=== PATIENT | female | born 1985 | race American Indian/Alaskan Native ===

== ENCOUNTER 2018-11-30 02:16 | Inpatient (IN) | payer MEDICAID ==
[2018-11-30] MEDS ORDERED: STADOL IV PRN (03:01)
[2018-11-30] MEDS ORDERED: BRETHINE SUB-Q PRN (03:02)
[2018-11-30] MEDS ORDERED: MINERAL OIL PO PRN (03:02)
[2018-11-30] MEDS ORDERED: BRETHINE IVP PRN (03:02)
[2018-11-30] MEDS ORDERED: XYLOCAINE 2% INFILTRATI ONE (03:02)
[2018-11-30] MEDS ORDERED: AMPICILLIN/NS 2 GM/100 ML 2 GM/100 ML BAG IV ONE (03:04)
[2018-11-30 03:34] LABS: Hematocrit 34.8 % (30.3-42.9); Hemoglobin 11.8 gm/dl (10.1-14.3); Mean Corpuscular HGB Conc 34 % (30-34); Mean Corpuscular Volume 83 fl (79-97); Platelet Count 320 K/mm3 (140-440); Red Cell Distribution Width 16.9 % (13.2-15.2)
[2018-11-30] MEDS ORDERED: LACTATED RINGERS 1,000 ML IV SCH ×2 (04:00→16:00)
[2018-11-30] MEDS ORDERED: PITOCin/NS 30 UNIT/500ML 30 UNITS/500 ML BAG IV SCH ×2 (04:00)
[2018-11-30] MEDS ORDERED: PITOCin/NS 20 UNIT/1000ML DRIP 20 UNITS/1,000 ML BAG IV SCH ×3 (04:00→19:00)
[2018-11-30] MEDS ORDERED: NARCAN 2 MG/2 ML IV PRN (05:28)
--- NOTE | 2018-11-30 05:29 | Anesthesia Consultation ---
Anesthesia Consult and Med Hx Date of service: 11/30/18 - Airway Anesthetic Teeth Evaluation: Good ROM Head & Neck: Adequate Mental/Hyoid Distance: Adequate Mallampati Class: Class III Intubation Access Assessment: Probably Good - Pulmonary Exam CTA: Yes - Cardiac Exam Cardiac Exam: RRR - Pre-Operative Health Status ASA Pre-Surgery Classification: ASA3 Proposed Anesthetic Plan: Epidural - Pulmonary Hx Smoking: No Hx Asthma: Yes (as a child) Hx Respiratory Symptoms: No SOB: No COPD: No Home Oxygen Therapy: No Hx Pneumonia: No Hx Sleep Apnea: No - Cardiovascular System Hx Hypertension: No Hx Coronary Artery Disease: No Hx Heart Attack/AMI: No Hx Angina: No Hx Percutaneous Transluminal Coronary Angioplasty (PTCA): No Hx Cardia Arrhythmia: No Hx Pacemaker: No Hx Internal Defibrillator: No Hx Valvular Heart Disease: No Hx Heart Murmur: No Hx Peripheral Vascular Disease: No - Central Nervous System Hx Neuromuscular Disorder: No Hx Seizures: No CVA: No Hx Back Pain: Yes Hx Psychiatric Problems: No - Gastrointestinal Hx Ulcer: No Hx Gastroesophageal Reflux Disease: Yes - Endocrine Hx Renal Disease: No Hx End Stage Renal Disease: No Hx Cirrhosis: No Hx Liver Disease: No Hx Insulin Dependent Diabetes: No Hx Non-Insulin Dependent Diabetes: No Hx Thyroid Disease: No Hx Hypothyroidism: No Hx Hyperthyroidism: No - Hematic Hx Anemia: Yes Hx Sickle Cell Disease: No - Other Systems Hx Alcohol Use: No Hx Substance Use: No Hx Cancer: No Hx Obesity: Yes
[2018-11-30] MEDS ORDERED: fentaNYL-BUPIV 2 MCG/ML-0.125% 200 MCG/100 ML BAG EPIDURAL SCH (06:00)
[2018-11-30] MEDS ORDERED: AMPICILLIN/NS 1 GM/50 ML 1 GM/50 ML BAG IV SCH (07:03)
--- NOTE | 2018-11-30 09:28 | History and Physical Report ---
History of Present Illness Date of examination: 11/30/18 Date of admission: 11/30/2018 Chief complaint: Intense labor pains History of present illness: 33yo AA Fe MACK 12/04/18 39 weeks 3 days presents in spontaneous labor. Pt received care with [facility]. Records not available on admission but requested this am. Pt co-managed with [facility] for Morbid obesity. Last visit with them 11/29/18. Reports positive GBS status. 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 denies: smoking, alcohol abuse, prescription drug abuse, IV drug use - Obstetrical History Expected Date of Delivery: 12/04/18 Actual Gestation: 39 Week(s) 3 Day(s) : 5 Para: 1 Hx # Term Pregnancies: 1 Number of Pregnancies: 0 Spontaneous Abortions: 3 Number of Living Children: 1 Medications and Allergies Allergies Allergy/AdvReac Type Severity Reaction Status Date / Time No Known Allergies Allergy Verified 11/27/18 13:17 Active Meds: Active Medications Butorphanol Tartrate (Stadol) 2 mg IV Q2H PRN PRN Reason: Labor Pain Last Admin: 11/30/18 03:30 Dose: 2 mg Documented by: Ephedrine Sulfate (Ephedrine Sulfate) 10 mg IV Q2M PRN PRN Reason: Hypotension Oxytocin/Sodium Chloride (Pitocin/Ns 20 Unit/1000ml Drip) 20 units in 1,000 mls @ 125 mls/hr IV DIRECT RABIA Oxytocin/Sodium Chloride (Pitocin/Ns 30 Unit/500ml) 30 units in 500 mls @ 1 mls/hr IV TITR RABIA; Protocol Oxytocin/Sodium Chloride (Pitocin/Ns 30 Unit/500ml) 30 units in 500 mls @ 2 mls/hr IV TITR RABIA; Protocol Last Titration: 11/30/18 05:45 Dose: 8 ml/hr, 8 mls/hr Documented by: Lactated Ringer's (Lactated Ringers) 1,000 mls @ 125 mls/hr IV DIRECT RABIA Last Admin: 11/30/18 03:30 Dose: 125 mls/hr Documented by: Ampicillin Sodium (Ampicillin/Ns 1 Gm/50 Ml) 1 gm in 50 mls @ 100 mls/hr IV Q4HR RABIA; Protocol Fentanyl/Bupivacaine/Sodium Chlor (Fentanyl-Bupiv 2 Mcg/Ml-0.125%) 200 mcg in 100 mls @ 12 mls/hr EPIDURAL TITR RABIA; Protocol Mineral Oil (Mineral Oil) 30 ml PO QHS PRN PRN Reason: Constipation Naloxone HCl (Narcan 2 Mg/2 Ml) 0.2 mg IV Q5M PRN PRN Reason: Respiratory sedation Terbutaline Sulfate (Brethine) 0.25 mg SUB-Q ONCE PRN PRN Reason: Hyperstimulation/Hypertonicity Terbutaline Sulfate (Brethine) 0.25 mg IVP ONCE PRN PRN Reason: Hyperstimulation/Hypertonicity Review of Systems Eyes: normal appearance Cardiovascular: no chest pain, no shortness of breath Respiratory: no shortness of breath Breasts: normal Gastrointestinal: no nausea, no vomiting, no diarrhea, no constipation Genitourinary: normal appearance, contractions, no vaginal bleeding, no leakage of fluid, no genital sores Integumentary: no rash, no sores, no lesions - Vital Signs Vital signs: Vital Signs Pulse BP 100 H 133/79 11/30/18 03:04 11/30/18 03:04 Temp Pulse Resp BP Pulse Ox 98.0 F 133 H 20 163/98 11/30/18 08:09 11/30/18 09:08 11/30/18 06:18 11/30/18 09:08 - Physical Exam Breasts: Positive: normal Cardiovascular: Regular rate, Normal S1, Normal S2, No murmurs Lungs: Positive: Clear to auscultation, Normal air movement Abdomen: Positive: normal appearance, soft, normal bowel sounds. Negative: distention Genitourinary (Female): Positive: normal external genitalia, normal perenium Vulva: both: normal Vagina: Positive: other (bloody show) Uterus: Positive: enlarged (Gravid. EFW with [facility] per pt [id number] on 11/28/18) Anus/Rectum: Positive: normal perianal skin Extremities: Positive: normal Deep Tendon Reflex Grade: Normal +2 - Obstetrical FHR: category 1 Uterine Contraction Monitor Mode: External Cervical Dilatation: 7 (AROM with exam. Lg amt clear fluid) Cervical Effacement Percentage: 70 station: -2 Uterine Contraction Frequency (min): 2-5 Uterine Contraction Pattern: Regular Uterine Tone Measurement Phase: Resting Uterine Contraction Intensity: Moderate Results Result Diagrams: 11/30/18 03:08 Abnormal lab results 11/30/18 Range/Units 03:08 WBC 12.1 H (4.5-11.0) K/mm3 RDW 16.9 H (13.2-15.2) % All other labs normal. Assessment and Plan A: Term IUP Active labor Morbid Obesity GBS Positive Category 1 tracing Comfortable with epidural P: Admit/Continue routine labor orders Pitocin Augmentation GBS prophylaxis Anticiapte
[2018-11-30] MEDS ORDERED: MARCAINE 0.25% INFILTRATI ONE (12:18)
--- NOTE | 2018-11-30 14:43 | Progress Note ---
Assessment and Plan A: Term IUP Active labor Morbid Obesity GBS Positive tx'd x3 Category 1 tracing Comfortable with epidural OP presentation with minimal change since this am [facility] EFW 9+lbs P: Continue routine labor orders Continue Pitocin Augmentation; MVU goal 275-[address] Bhumi VERGARA notified of slow progression with OP presentation and [place] expected 9+ lbs. Will come evaluate. Subjective - Subjective Date of service: 11/30/18 Principal diagnosis: Term IUP; Active labor Interval history: 33yo AA Fe MACK 12/04/18 39 weeks 3 days presents in spontaneous labor. Pt received care with [facility]. Records not available on admission but requested this am. Pt co-managed with [facility] for Morbid obesity. Last visit with them 11/29/18. Reports positive GBS status. Patient reports: movement normal, contractions Objective - Vital Signs Vital Signs: Vital Signs - 12hr 11/30/18 11/30/18 11/30/18 03:04 03:06 03:30 Temperature 97.6 F Pulse Rate 100 H 100 H Respiratory 18 18 Rate Blood Pressure 133/79 Blood Pressure 113/79 [Right] 11/30/18 11/30/18 11/30/18 04:06 04:36 05:07 Temperature Pulse Rate 91 H 90 94 H Respiratory Rate Blood Pressure 120/72 125/80 134/77 Blood Pressure [Right] 11/30/18 11/30/18 11/30/18 05:37 06:07 06:18 Temperature Pulse Rate 86 92 H Respiratory 20 Rate Blood Pressure 118/65 99/55 Blood Pressure [Right] 11/30/18 11/30/18 11/30/18 06:37 07:06 07:39 Temperature Pulse Rate 88 85 86 Respiratory Rate Blood Pressure 103/54 102/59 154/113 Blood Pressure [Right] 11/30/18 11/30/18 11/30/18 07:45 08:06 08:09 Temperature 98.0 F Pulse Rate 84 78 Respiratory Rate Blood Pressure 107/57 112/57 Blood Pressure [Right] 11/30/18 11/30/18 11/30/18 08:36 09:08 09:37 Temperature Pulse Rate 83 133 H 88 Respiratory Rate Blood Pressure 107/56 163/98 113/70 Blood Pressure [Right] 11/30/18 11/30/18 11/30/18 10:07 10:36 11:06 Temperature Pulse Rate 101 H 97 H 103 H Respiratory Rate Blood Pressure 118/57 124/58 120/71 Blood Pressure [Right] 11/30/18 11/30/18 11/30/18 11:37 12:06 12:36 Temperature Pulse Rate 113 H 113 H 109 H Respiratory Rate Blood Pressure 116/68 119/70 109/58 Blood Pressure [Right] 11/30/18 11/30/18 11/30/18 13:07 13:36 14:06 Temperature Pulse Rate 96 H 100 H 104 H Respiratory Rate Blood Pressure 170/58 115/61 129/73 Blood Pressure [Right] - Exam Breasts: normal Cardiovascular: Regular rate, Normal S1, Normal S2, No murmurs Lungs: Clear to auscultation, Normal air movement Abdomen: Present: normal appearance, soft, normal bowel sounds. Absent: distention Vulva: both: normal Uterus: Present: other (Gravid) FHR: category 1 Uterine Contraction Monitor Mode: External Cervical Dilatation: 8 (OP presentation) Cervical Effacement Percentage: 70 station: -1 Uterine Contraction Frequency (min): 3-4 Uterine Contraction Duration: 60-90 Uterine Contraction Pattern: Regular Uterine Tone Measurement Phase: Resting Extremities: normal Deep Tendon Reflex Grade: Normal +2 - Labs Labs: Abnormal Labs 11/30/18 03:08 WBC 12.1 H RDW 16.9 H Laboratory Results - last 24 hr 11/30/18 11/30/18 03:08 03:08 WBC 12.1 H RBC 4.20 Hgb 11.8 Hct 34.8 MCV 83 MCH 28 MCHC 34 RDW 16.9 H Plt Count 320 Blood Type A POSITIVE Antibody Screen Negative
[2018-11-30] MEDS ORDERED: PEPCID IV ONE ×2 (15:52→15:53)
[2018-11-30] MEDS ORDERED: BICITRA PO ONE (15:52)
[2018-11-30] MEDS ORDERED: REGLAN IV ONE (15:52)
[2018-11-30] MEDS ORDERED: BICITRA ONE (15:54)
[2018-11-30] MEDS ORDERED: REGLAN ONE (15:54)
[2018-11-30] MEDS ORDERED: ceFAZolin 3 GM in NACL 0.9% 100 ML IV NR (16:00)
--- NOTE | 2018-11-30 16:04 | Progress Note ---
Assessment and Plan - Patient Problems (1) 39 weeks gestation of Current Visit: Yes Status: Acute (2) Active labor Current Visit: Yes Status: Acute (3) Failure of cervical dilation Current Visit: Yes Status: Acute Plan to address problem: Pitocin discontinued. I counselled the patient for delivery C/section. Risks and benefits of the procedure were discussed with her such as infection, hemorrhage requiring blood transfusion, injury to the bowel, bladder and blood vessels. She expressed understanding, her questions were answered, she gave her informed consent. Keep NPO. Anesthesia has been notified. Epidural in place. (4) Morbid obesity Current Visit: Yes Status: Acute Subjective - Subjective Date of service: 11/30/18 Principal diagnosis: Term IUP; Active labor Interval history: Patient is a 33 year old, , EDC 12/04/18 at 39 weeks 3 days who was admitted last night for early labor. She was augmented with pitocin this AM. She had AROM this AM with clear fluid. She has been shreyas every 2-3 minutes. tracing is CAT1. As per the political theory professor, she progressed to 7 cm at 9 AM and has not made any further changes since then. I was called to evaluate the patient by political theory professor July for failure to dilate. I found the patient lying in bed comfortably, she had an epidural for pain control. Cervix: 7 cm/90%/-2 to -1 with caput. Patient reports: movement normal, contractions Objective - Vital Signs Vital Signs: Vital Signs - 12hr 11/30/18 11/30/18 11/30/18 04:06 04:36 05:07 Temperature Pulse Rate 91 H 90 94 H Respiratory Rate Blood Pressure 120/72 125/80 134/77 11/30/18 11/30/18 11/30/18 05:37 06:07 06:18 Temperature Pulse Rate 86 92 H Respiratory 20 Rate Blood Pressure 118/65 99/55 11/30/18 11/30/18 11/30/18 06:37 07:06 07:39 Temperature Pulse Rate 88 85 86 Respiratory Rate Blood Pressure 103/54 102/59 154/113 11/30/18 11/30/18 11/30/18 07:45 08:06 08:09 Temperature 98.0 F Pulse Rate 84 78 Respiratory Rate Blood Pressure 107/57 112/57 11/30/18 11/30/18 11/30/18 08:36 09:08 09:37 Temperature Pulse Rate 83 133 H 88 Respiratory Rate Blood Pressure 107/56 163/98 113/70 11/30/18 11/30/18 11/30/18 10:07 10:36 11:06 Temperature Pulse Rate 101 H 97 H 103 H Respiratory Rate Blood Pressure 118/57 124/58 120/71 11/30/18 11/30/18 11/30/18 11:37 12:00 12:06 Temperature 98.0 F Pulse Rate 113 H 113 H Respiratory Rate Blood Pressure 116/68 119/70 11/30/18 11/30/18 11/30/18 12:36 13:07 13:36 Temperature Pulse Rate 109 H 96 H 100 H Respiratory Rate Blood Pressure 109/58 170/58 115/61 11/30/18 11/30/18 11/30/18 14:06 14:36 15:07 Temperature Pulse Rate 104 H 96 H 97 H Respiratory Rate Blood Pressure 129/73 130/65 129/60 11/30/18 15:36 Temperature Pulse Rate 106 H Respiratory Rate Blood Pressure 133/70 - Exam Cardiovascular: Normal S1, Normal S2 Lungs: Clear to auscultation Vulva: both: normal FHR: category 1 Uterine Contraction Monitor Mode: External Cervical Dilatation: 7 Cervical Effacement Percentage: 90 station: -2 Uterine Contraction Pattern: Regular Uterine Contraction Intensity: Strong/Firm Deep Tendon Reflex Grade: Normal +2 - Labs Labs: Abnormal Labs 11/30/18 03:08 WBC 12.1 H RDW 16.9 H Laboratory Results - last 24 hr 11/30/18 11/30/18 11/30/18 03:08 03:08 03:08 WBC 12.1 H RBC 4.20 Hgb 11.8 Hct 34.8 MCV 83 MCH 28 MCHC 34 RDW 16.9 H Plt Count 320 RPR Nonreactive Blood Type A POSITIVE Antibody Screen Negative - Results US- obstetric: report reviewed
[2018-11-30] MEDS ORDERED: XYLOCAINE MPF 2% ONE ×5 (16:11→17:58)
[2018-11-30] MEDS ORDERED: METHERGINE IM ONE ×3 (16:21→17:59)
--- NOTE | 2018-11-30 16:26 | Event Note ---
Date: 11/30/18 Patient was ready to be taken to the OR for her C/section. Dr. Villafana had a C/section to do at 5 PM. I called his office several times to let him know that I will section Ms. Sharma before his case but I was not able to find him as nobody picked up the phone. Now, his chief investment officer was given the message and he said that he just found found out. he wants to come now to do his case. I told the staff that his case is going first. I will sign Mrs. Sharma to Dr. Iglesia Harley at 5 pm since the OR will not ready until after Dr. Villafana's case.
[2018-11-30] MEDS ORDERED: NACL 0.9% IR ONE (17:00)
[2018-11-30] MEDS ORDERED: WATER FOR IRRIG STERILE IR ONE (17:00)
[2018-11-30] MEDS ORDERED: ZOFRAN ONE (17:11)
--- NOTE | 2018-11-30 18:25 | Operative Report ---
Operative Report Operative Report: Preoperative diagnosis 1. SIUP at 39 weeks and 3 days gestation in active labor. 2. Failure to dilate and descend. 3. Nonreassuring tracing. 4. Morbid obesity. Postoperative diagnosis: Same. Procedure: Primary low-transverse section. Surgeon: Dr. Nino Escape Wheel Tooth Cutter: none Anesthesia: epidural. IVF: RL 1700 cc EBL: 800 cc Urine: 300 cc clear Complications: Intraoperative uterine atony responsive to IV Pitocin and IM methergine. Intraoperative findings: 1. A male found in an VICKI position, tight nuchal cord 1, delivered at 5:11 PM, Apgars 8 at 1 minute and 9 at 5 minutes, weight 8 lbs. 4 oz. 2. Normal fallopian tubes and ovaries bilaterally. Procedure details: Risks, benefits, and alternatives of the procedure were discussed in detail with the patient which included but not limited to the risk of infection, hemorrhage requiring blood transfusion, injury to the bowel or bladder and blood vessels. The patient expressed understanding, her questions were answered, and she gave informed consent. The patient was taken to the operating room with an IV fluid infusing Ringers lactate. In the operating room, she was placed in a dorsal supine position with a leftward tilt. She was loaded with epidural anesthesia. Arzate catheter in Venodyne boots were placed. The abdomen was washed and she was prepared and draped in usual sterile fashion. After confirming adequate epidural anesthesia, the Pfannenstiel skin incision was made in the lower abdomen about 2 cm above the pubic symphysis using the scalpel. This incision was carried down to the underlying fascia using the Bovie. The fascia was opened bilaterally in a curvilinear fashion using the Bovie. 2 straight Kocker clamps were used to grasp the upper edge of the fascia from which the underlying rectus abdominis muscles was dissected off using the Bovie. A similar procedure was done with the lower edge of the fascia to dissect the underlying rectus abdominis muscle. The muscle was bluntly from the midline by pulling. The parietal peritoneum was grasped with 2 hemostat clamps and entered sharply using Metzenbaum scissors. A quick survey of the anatomy revealed a gravid uterus, normal fallopian tubes and ovaries bilaterally. A bladder flap was created. Reza'O retractor was placed in the incision for proper visualization. A low transverse incision was made in the lower uterine segment using the scalpel and extended bilaterally in a curvilinear fashion using bandage scissors. There was scant amount of clear amniotic fluid as the membranes have been ruptured during the labor. The infant was found in an VICKI position, the head was delivered atraumatically followed by the delivery of the shoulders and the rest of the body at 5:11 PM. There was tight nuchal cord 1. The cord was clamped 2 and cut and the infant was handed off to the waiting cabinetmaker helper. The infant was a male, Apgars were 8 at 1 minute and 9 at 5 minutes, weight was 8 pounds and 4 ounces. Cord blood was collected. The placenta was delivered manually and it was complete with a three-vessel cord. The uterine cavity was cleaned of clots and debris using dry lap sponges. The uterine incision was repaired in a running locked fashion using 0 Vicryl sutures. A second layer of imbrication was placed. The gutters were cleaned of clots and debris using dry lap sponges. After confirming adequate hemostasis, the instruments were removed from the abdominal cavity. The rectus muscle was reapproximated in an interrupted fashion using 0 Vicryl sutures. The fascia was closed in a running fashion using 0 Vicryl sutures. The subcutaneous adipose layer was closed with 2.0 chromic sutures. skin was closed with ruth. Sterile dressing was placed. The counts of laps, needles, sponges, and instruments were correct 2. The patient tolerated the procedure well, she was taken to the recovery room in a stable condition.
[2018-11-30] MEDS ORDERED: ZOFRAN IV PRN (18:26)
[2018-11-30] MEDS ORDERED: TUCKS PAD TP PRN (18:26)
[2018-11-30] MEDS ORDERED: ANUCORT-HC PR PRN (18:26)
[2018-11-30] MEDS ORDERED: IBUPROFEN PO PRN (18:26)
[2018-11-30] MEDS ORDERED: TORADOL IV PRN ×2 (18:26)
[2018-11-30] MEDS ORDERED: MILK OF MAGNESIA PO PRN (18:26)
[2018-11-30] MEDS ORDERED: PHENERGAN PR PRN (18:26)
[2018-11-30] MEDS ORDERED: NARCAN 0.4 MG/1 ML IV PRN (18:26)
[2018-11-30] MEDS ORDERED: MORPHINE IV PRN (18:26)
[2018-11-30] MEDS ORDERED: SENOKOT PO PRN (18:26)
[2018-11-30] MEDS ORDERED: LANSINOH TP PRN (18:26)
[2018-11-30] MEDS ORDERED: TYLENOL PO PRN (18:26)
[2018-11-30] MEDS ORDERED: DILAUDID ONE ×2 (18:39)
--- NOTE | 2018-11-30 18:52 | Anesthesia Day of Surgery ---
Anesthesia Day of Surgery - Day of Surgery Patient Examined: Yes Patient H&P Reviewed: Yes Patient is NPO: Yes Beta Blockers: No Cardiac Clearance: No Pulmonary Clearance: No Morgan's Test: N/A
--- NOTE | 2018-11-30 18:53 | Post Anesthesia Evaluation ---
- Post Anesthesia Evaluation Patient Participated: Yes Airway Patent: Yes Stable Respiratory Function: Yes Nausea/Vomiting: No Temp > 96.8F: Yes Pain Manageable: Yes Adequeate Hydration: Yes Anesthesia Complications: No Block Receding Appropriately: Yes Patient on Ventilator: No
[2018-11-30] MEDS ORDERED: SODIUM CHLORIDE FLUSH SYRINGE 10 ML IV NR (19:00)
[2018-11-30] MEDS: MORPHINE IV PRN ×2 (19:46→23:52)
[2018-11-30] MEDS: D5LR 1,000 ML IV SCH (22:48)
[2018-11-30 23:20] LABS: Basophils % (Auto) 0.2 % (0.0-1.8); Hematocrit 33.2 % (30.3-42.9); Hemoglobin 10.8 gm/dl (10.1-14.3); Lymphocytes # (Auto) 1.4 K/mm3 (1.2-5.4); Lymphocytes % (Auto) 7.5 % (13.4-35.0); Mean Corpuscular HGB Conc 33 % (30-34); Mean Corpuscular Volume 84 fl (79-97); Monocytes # (Auto) 1.2 K/mm3 (0.0-0.8); Monocytes % (Auto) 6.8 % (0.0-7.3); Platelet Count 267 K/mm3 (140-440); Red Blood Count 3.94 M/mm3 (3.65-5.03); Red Cell Distribution Width 16.9 % (13.2-15.2)
[2018-12-01] MEDS: MORPHINE IV PRN ×2 (04:20→09:12)
[2018-12-01] MEDS: D5LR 1,000 ML IV SCH (04:23)
[2018-12-01 06:31] LABS: Hematocrit 30.9 % (30.3-42.9)
[2018-12-01] MEDS: FEOSOL PO SCH (10:00)
[2018-12-01] MEDS: PRENATAL VITAMIN PO SCH (10:00)
[2018-12-01] MEDS ORDERED: MILK OF MAGNESIA PO PRN ×2 (11:09→15:00)
--- NOTE | 2018-12-01 12:48 | Progress Note ---
Assessment and Plan - Patient Problems (1) S/P primary low transverse Current Visit: Yes Status: Acute Plan to address problem: POD 1 - stable Continue routine postop orders Sofia catheter discontinued Ambulation encouraged, as tolerated Abdominal binder ordered Anticipate discharge in 24-48 hours (2) Anemia due to blood loss, acute Current Visit: Yes Status: Acute Plan to address problem: Asymptomatic Continue iron therapy (3) Morbid obesity with BMI of 50.0-59.9, adult Current Visit: Yes Status: Acute Subjective - Subjective Date of service: 12/01/18 Principal diagnosis: POD #1; s/p Primary LTCS Interval history: see H&P, OB Progress Notes, and Operative Report Patient reports: appetite normal, dizzy ambulation, pain well controlled, other (sofia catheter in place), no flatus, no bowel movement [place]: doing well, bottle feeding Objective - Vital Signs Latest vital signs: Vital Signs Temp Pulse Resp BP BP Pulse Ox 12/01/18 08:49 98.9 F 108 H 20 119/70 96 12/01/18 06:00 98.6 F 105 H 20 114/67 96 12/01/18 04:20 20 12/01/18 01:39 98.2 F 104 H 22 107/67 97 11/30/18 23:52 20 11/30/18 22:31 20 11/30/18 20:16 18 11/30/18 20:00 99.7 F H 90 18 112/70 11/30/18 19:50 93 H 18 108/64 98 11/30/18 19:46 18 11/30/18 19:41 100.8 F H 94 H 18 98/57 98 11/30/18 19:25 96 H 101/54 98 11/30/18 19:10 101.1 F H 90 18 125/53 97 11/30/18 18:55 87 18 103/47 97 11/30/18 18:50 85 20 107/58 96 11/30/18 18:45 87 20 117/59 97 11/30/18 18:40 101.4 F H 90 20 120/60 97 11/30/18 16:37 94 H 109/64 11/30/18 16:20 110 H 123/70 11/30/18 16:07 118 H 122/72 11/30/18 15:36 106 H 133/70 11/30/18 15:07 97 H 129/60 11/30/18 14:36 96 H 130/65 11/30/18 14:06 104 H 129/73 11/30/18 13:36 100 H 115/61 11/30/18 13:07 96 H 170/58 Intake and Output 11/30/18 12/01/18 12/01/18 23:59 07:59 15:59 Intake Total 2100 1177.917 Output Total 1300 1200 Balance 800 -22.083 Intake: IV 2100 697.917 D5lr 1,000 ml @ 125 mls/ 697.917 hr IV DIRECT RABIA Rx#: [id number] Oral 240 Intake, Free Water 240 Output: Urine 1300 1200 Indwelling Catheter 650 1200 Other: Total, Intake Amount 240 Total, Output Amount 650 300 Estimated Blood Loss 800 - Exam Abdomen: Present: normal appearance, soft Vulva: both: normal Uterus: Present: normal, firm, fundal height at umbilicus Extremities: Present: normal Incision: Present: normal, dry, intact, dressed Comments: small lochia - Labs Labs: Abnormal lab results 11/30/18 12/01/18 Range/Units 22:55 05:48 WBC 18.2 H (4.5-11.0) K/mm3 Hgb 10.0 L (10.1-14.3) gm/dl MCH 27 L (28-32) pg RDW 16.9 H (13.2-15.2) % Lymph % (Auto) 7.5 L (13.4-35.0) % Pender # 1.2 H (0.0-0.8) K/mm3 Seg Neutrophils % 85.5 H (40.0-70.0) % Seg Neutrophils # 15.6 H (1.8-7.7) K/mm3
[2018-12-01] MEDS: PERCOCET 5/325 PO PRN (16:00)
[2018-12-02] MEDS: MYLICON PO PRN ×3 (00:30→17:50)
[2018-12-02] MEDS: PERCOCET 5/325 PO PRN ×3 (00:30→20:50)
[2018-12-02] MEDS: FEOSOL PO SCH (11:36)
[2018-12-02] MEDS: PRENATAL VITAMIN PO SCH (11:36)
--- NOTE | 2018-12-02 20:55 | Progress Note ---
Assessment and Plan A: day 2 S/P primary low transverse section. Anemia secondary to and blood loss. Obesity. P: Encouraged ambulation. Continue iron supplementation. Subjective - Subjective Date of service: 12/02/18 Principal diagnosis: POD #2; s/p Primary LTCS Interval history: /postop day 2 S/P primary low transverse section. Doing well. Patient reports small amount of lochia. Has passed gas and had a small BM. Voiding without difficulty, ambulating well, tolerating a regular diet. Patient denies headache, dizziness, chest pain, shortness of breath, cough, abdominal pain, leg pain, or any other problems. Patient reports: appetite normal, voiding normally, pain well controlled, flatus, bowel movement, ambulating normally, no dizzy ambulation, no nauseated : doing well Objective - Vital Signs Latest vital signs: Vital Signs Temp Pulse Resp BP BP Pulse Ox 12/02/18 17:57 99.6 F 104 H 20 122/71 97 12/02/18 07:54 98.6 F 95 H 18 113/66 97 12/02/18 00:45 99.1 F 102 H 20 116/63 97 Intake and Output 12/02/18 12/02/18 12/02/18 07:59 15:59 23:59 Intake Total 1080 Balance 1080 Intake: Oral 240 Intake, Free Water 840 Other: Total, Intake Amount 240 # Voids Void 4 - Exam Cardiovascular: Present: Regular rate, Normal S1, Normal S2 Lungs: Present: Clear to auscultation Abdomen: Present: normal appearance, soft, normal bowel sounds. Absent: distention, tenderness, guarding, rigidity Uterus: Present: normal, firm, fundal height below umbilicus. Absent: bogginess, tenderness Extremities: Present: normal. Absent: tenderness, edema Incision: Present: normal, dry, intact
[2018-12-03] MEDS: FEOSOL PO SCH (10:05)
[2018-12-03] MEDS: PRENATAL VITAMIN PO SCH (10:05)
[2018-12-03] MEDS: PERCOCET 5/325 PO PRN ×2 (13:15→23:35)
--- NOTE | 2018-12-03 23:18 | Progress Note ---
Assessment and Plan A: day 2 S/P primary low transverse section. Anemia secondary to and blood loss. P: Discharge patient home. Discussed with patient discharge instructions and warning signs, activity restrictions, and care of incision. Advised patient to avoid intercourse, driving, lifting and heavy housework, stair climbing. Advised patient to continue taking her vitamins and iron supplements at home. Advised patient to follow up at [facility] in 1 week. Patient voiced understanding of all instructions. Subjective - Subjective Date of service: 12/03/18 Principal diagnosis: POD #3; s/p Primary LTCS Interval history: /postop day 3 S/P primary low transverse section. Doing well. Patient reports small amount of lochia. Has passed gas and had a small BM. Voiding without difficulty, ambulating well, tolerating a regular diet. Patient denies headache, dizziness, chest pain, shortness of breath, cough, abdominal pain, leg pain, or any other problems. Patient reports: appetite normal, voiding normally, pain well controlled, flatus, bowel movement, ambulating normally, no dizzy ambulation, no nauseated [place]: doing well Objective - Vital Signs Latest vital signs: Vital Signs Temp Pulse Resp BP Pulse Ox 12/03/18 16:03 98.4 F 95 H 18 107/68 95 12/03/18 09:17 99.0 F 102 H 20 130/75 94 12/03/18 00:56 98.3 F 96 H 20 111/65 96 Intake and Output 12/03/18 12/03/18 12/03/18 07:59 15:59 23:59 Intake Total 600 120 Balance 600 120 Intake: Oral 600 120 Other: Total, Intake Amount 360 120 # Voids Void 1 1 - Exam Cardiovascular: Present: Regular rate, Normal S1, Normal S2 Lungs: Present: Clear to auscultation Abdomen: Present: normal appearance, soft, normal bowel sounds. Absent: distention, tenderness, guarding, rigidity Uterus: Present: normal, firm, fundal height below umbilicus. Absent: bogginess, tenderness Extremities: Present: normal, edema (mild pedal edema bilaterally). Absent: tenderness Incision: Present: normal, dry, intact
--- NOTE | 2018-12-03 23:24 | Discharge Summary ---
Providers - Providers Date of Admission: 11/30/18 17:14 Date of discharge: 12/03/18 Attending physician: ELA GONZALEZ MD None Primary care physician: ELA GONZALEZ MD Hospitalization Reason for admission: active labor Delivery: Procedure: primary low transverse Incision: normal, dry, intact Other procedures: none complications: none Discharge diagnosis: IUP at term delivered baby: male Pertinent studies: Labs Hospital course: Normal hospital course. Condition at discharge: Good Disposition: DC-01 TO HOME OR SELFCARE - Discharge Diagnoses (1) Term delivered Status: Acute Plan - Discharge Medications Prescriptions: Ibuprofen [Motrin] 800 mg PO Q8HR PRN #30 tablet PRN Reason: Pain, Moderate (4-6) oxyCODONE /ACETAMINOPHEN [Percocet 5/325] 1 tab PO Q4HR #20 tab - Provider Discharge Summary Activity: routine, no sex for 6 weeks, no heavy lifting 4 weeks, no strenuous exercise Diet: routine Instructions: routine Additional instructions: Continue taking your vitamins and iron supplements at home. Call your doctor immediately for: * Fever > 100.5 * Heavy vaginal bleeding ( >1 pad per hour) * Severe persistent headache * Shortness of breath * Reddened, hot, painful area to leg or breast * Drainage or odor from incision. * Keep incision clean and dry at all times and follow doctor's instructions regarding bathing/showering - Follow up plan Follow up: ELA GONZALEZ MD [Primary Care Provider] - 7 Days
[2018-12-04] MEDS: FEOSOL PO SCH (10:19)
[2018-12-04] MEDS: PRENATAL VITAMIN PO SCH (10:19)
[2018-12-04 15:58] VITALS: BP 127/74
== END 2018-12-04 15:15 | disposition home or self-care (01) | DRG 765 ==
LOC: TRG 02:16 → LD 03:01 → TRG 17:12 → LD 17:14 → APU 17:17 → OB 20:11
PROVIDERS: ADMIT Obstetrics & Gynecology; ATTEND Obstetrics & Gynecology
PROC: 10D00Z1 Extraction of Products of Conception, Low, Open Approach (ICD-10-PCS; principal; 2018-11-30)
PROC: 10907ZC Drainage of Amniotic Fluid, Therapeutic from Products of Conception, Via Natural or Artificial Opening (ICD-10-PCS; 2018-11-30)
DX: O99.824 Streptococcus B carrier state complicating childbirth (principal); D62 Acute posthemorrhagic anemia; Z37.0 Single live birth; Z3A.39 39 weeks gestation of pregnancy; J45.909 Unspecified asthma, uncomplicated; K21.9 Gastro-esophageal reflux disease without esophagitis; E66.01 Morbid (severe) obesity due to excess calories; O61.8 Other failed induction of labor; O76 Abnormality in fetal heart rate and rhythm complicating labor and delivery; O62.2 Other uterine inertia; O69.1XX0 Labor and delivery complicated by cord around neck, with compression, not applicable or unspecified; O99.52 Diseases of the respiratory system complicating childbirth; O99.62 Diseases of the digestive system complicating childbirth; O99.214 Obesity complicating childbirth; O99.03 Anemia complicating the puerperium
CPT/HCPCS: 36415; 85014; 85018; 85025; 85027; 86592; 86705; 86706; 86850; 86900; 86901; 87517; 87806; 88307; G0378; J0290; J0595; J0690; J1170; J1885; J2210; J2270; J2405; J2590; J2765; J7120; J7121

== ENCOUNTER 2021-05-20 14:39 | Outpatient (CLI) | payer BC ==
--- NOTE | 2021-05-20 16:42 | Ultrasound Report ---
ULTRASOUND BREAST LEFT LIMITED, 05/20/2021 CLINICAL INFORMATION / INDICATION: MASTODYNIA. Patient presents for evaluation of intermittent focal pain in the left breast as well as milky nipple discharge since she had a breast reduction in 2017. TECHNIQUE: Targeted ultrasound evaluation was performed of the area of interest. COMPARISON: None. FINDINGS: Targeted ultrasound of the area of focal pain in the upper outer quadrant of the left breast reveals normal fibroglandular tissue. Additionally, targeted ultrasound of the subareolar left breast is unre markable, with no etiology identified to account for left nipple discharge. IMPRESSION: 1. There is no sonographic abnormality to account for the area of focal pain in the left breast as we ll as left milky nipple discharge, therefore clinical correlation is recommended. If there is ongoing clinical concern, a diagnostic mammogram could be performed for further evaluation. Follow up recommendation: Clinical exam BI-RADS Category 1: NEGATIVE. A normal or "negative" report should not preclude biopsy or follow-up of a clinically suspicious find ing. Signer Name: Radha French MD Signed: 05/20/2021 4:38 PM Workstation Name: [id number]
== END 2021-05-20 14:40 | disposition home or self-care (01) ==
LOC: US 14:39
PROVIDERS: ATTEND Surgery
DX: N64.4 Mastodynia (principal); N64.52 Nipple discharge